=== PATIENT | female | born 1945 | race African-American/Black ===

== ENCOUNTER → 2017-03-23 | Outpatient (CLI) | payer OTHER ==
[~2017-03-23] VITALS: Ht 160 cm; Wt 102.1 kg
[2017-03-23] VITALS (8 sets, daily range): BP systolic 119–164; BP diastolic 62–88
[~2017-03-23] MED LIST: AMLO5TAB2 PO; ASPI-482 PO; CARV12.52 PO; CHOL200074 PO; CONTRAST GIVEN MC PRN; DILT240C66 PO; DILT240C77 PO; HEPARIN for IV BOLUS 10,000 UNIT/10 ML VIAL. IART ONE; HEPARIN for IV BOLUS 10,000 UNIT/10 ML VIAL. ONE; HYDR25TA9 PO; IOHEXOL 300 MG/ML 100ML VIAL. IART ONE; IOHEXOL 300 MG/ML 100ML VIAL. ONE; LIDOCAINE 2% 20 ML VIAL. IJ ONE; LIDOCAINE 2% 20 ML VIAL. ONE; METF1000 PO; METF500T PO; METF500T4 PO; MIDAZOLAM HCL/PF 2 MG/2 ML VIAL. IV ONE; MIDAZOLAM HCL/PF 2 MG/2 ML VIAL. ONE; NITROGLYCERIN 200 MCG/2 ML SYRINGE FOR CATH/VASC LAB. IART ONE; NITROGLYCERIN 200 MCG/2 ML SYRINGE FOR CATH/VASC LAB. ONE; OMEP40CA5 PO; OXYB5TAB7 PO; POTA10TA5 PO; POTA20TA12 PO; POTA20TA4 PO; PRAV80TA2 PO; SPIR25TA PO; VERAPAMIL 5 MG/2 ML VIAL. IART ONE; VERAPAMIL 5 MG/2 ML VIAL. ONE; fentaNYL PF VIAL 100 MCG/2 ML VIAL IV ONE; fentaNYL PF VIAL 100 MCG/2 ML VIAL ONE
[2017-03-23 09:57] LABS: HEMATOCRIT 45.3 % (36.0-47.0); HEMOGLOBIN 14.7 g/dL (12.0-15.5); RED BLOOD COUNT 5.24 x10^6/uL (3.50-5.40); RED CELL DISTRIBUTION WIDTH 14.6 % (11.5-14.5); WHITE BLOOD COUNT 7.3 x10^3/uL (4.0-11.0)
[2017-03-23 09:59] LABS: CREATININE 1.1 mg/dL (0.6-1.0); GFR 59.4; POTASSIUM 3.4 mmol/L (3.5-5.1)
[2017-03-23 10:11] LABS: PROTHROMBIN TIME PATIENT 12.7 SEC (11.7-14.0)
--- NOTE | 2017-03-23 11:05 | PDOC ---
MODERATE SEDATION ASSESSMENT RISKS/ALTERNATIVES Risks/Alternatives Risks and alternatives of this type of sedation and procedure discussed with: RISK/ALTERNATIVES: Patient H & P ON CHART H & P H & P on chart and reviewed for co-morbid conditions and appropriate labs. H&P ON CHART: Yes STATUS PREG STATUS ASSESSED: N/A MEDS/ALLERGIES REVIEWED Meds/Allergies Reviewed Medications and Allergies including time and route of recently administered narcotics and sedatives. MEDS/ALLERGIES REVIEWED: Yes ASA RATING ASA RATING: II AIRWAY ASSESSMENT Airway Assessment Airway patency, oral function limitations, presence of caps, crowns, dentures, partials, and ability to extend neck assessed. AIRWAY ASSESSMENT: Yes MALLAMPATI SCORE MALLAMPATI SCORE: II PRE-SEDATION ASSESSMENT PRE-SEDATION ASSESSMENT: Yes SHARMILA JUSTICE MD Mar 23, 2017 11:05
--- NOTE | 2017-03-23 11:12 | CARD ---
APPROVED REPORT Procedure(s) performed: Left heart catheterization, selective coronary angiography and left ventricul ography via right transradial approach Moderate sedation 32 minutes HISTORY : Chest pain and positive stress test. PROCEDURE NARRATIVE After explaining the risks, benefits and alternative options, informed consent was obtained from sneha ent. Patient was brought to the cardiac Product Management Intern and right wrist was prepped and draped in the usual fashion after confirming a positive modified Humble's test. Arterial access was obtained in the [facility] t radial artery and a 6 Salvadorean sheath was inserted. 6 [place]ad[place] JL 3.5 and 6F FR4 catheters were used t o perform selective angiography of the left and right coronary arteries after initial attempts to eng age these vessels with 6F Abhi catheter were unsuccessful. 6 [place]orean pigtail catheter was used to p erform left ventriculography. Patient tolerated the procedure well. Hemostasis was achieved using T R band. There were no immediate complications. The following findings were noted. FINDINGS 1. Hemodynamics: Left ventricular end-diastolic pressure of 14 mmHg. No pullback gradient across th e aortic valve. 2. Left ventriculography: Hyperdynamic left ventricle systolic function with ejection fraction shannon mated at 80%. No significant mitral regurgitation seen. 3. Coronary angiography: a. The left main coronary artery arose from the left sinus of Valsalva, gave rise to the left anteri or descending and left circumflex arteries and did not show any significant stenosis. b. The left anterior descending artery did not show any significant stenosis. c. The left circumflex artery did not show any significant stenosis. d. The right coronary artery was a large and dominant vessel arising from the right sinus of Valsalv a that showed 40% distal segment stenosis Conclusion 1. Non-obstructive coronary artery disease 2. Hyperdynamic left ventricle systolic function with ejection fraction estimated at 80% Recommendations Cardiac Risk Reduction Program Medical Therapy
== END ==
LOC: CCL 09:13
PROVIDERS: ATTEND Internal Medicine Cardiovascular Disease
DX: I25.10 Atherosclerotic heart disease of native coronary artery without angina pectoris (principal); I10 Essential (primary) hypertension; K21.9 Gastro-esophageal reflux disease without esophagitis; Z90.710 Acquired absence of both cervix and uterus; E11.9 Type 2 diabetes mellitus without complications
CPT/HCPCS: 36415; 80048; 85027; 85610; 93458; 99152; 99153; C1769; C1892; J1644; J2250; J3010; J3490; Q9967; J2001

== ENCOUNTER 2017-05-08 07:28 | Outpatient (CLI) | payer OTHER ==
[2017-05-08 08:08] LABS: HEMATOCRIT 44.6 % (36.0-47.0); HEMOGLOBIN 14.6 g/dL (12.0-15.5); MEAN CORPUSCULAR HEMOGLOBIN 28 pg (25-35); MEAN CORPUSCULAR HGB CONC 33 g/dL (31-37); MEAN CORPUSCULAR VOLUME 86 fL (79-100); PLATELET COUNT 209 x10^3/uL (140-400); RED BLOOD COUNT 5.18 x10^6/uL (3.50-5.40); RED CELL DISTRIBUTION WIDTH 15.1 % (11.5-14.5); WHITE BLOOD COUNT 6.8 x10^3/uL (4.0-11.0)
[2017-05-08 08:17] LABS: INR 1.2 (0.8-1.1); PARTIAL THROMBOPLASTIN TIME 26 SEC (24-38); PROTHROMBIN TIME PATIENT 14.4 SEC (11.7-14.0)
[2017-05-08 08:29] LABS: ANION GAP 11 (6-14); BLOOD UREA NITROGEN 17 mg/dL (7-20); CALCIUM 9.4 mg/dL (8.5-10.1); CARBON DIOXIDE 29 mmol/L (21-32); CHLORIDE 99 mmol/L (98-107); CREATININE 1.2 mg/dL (0.6-1.0); GFR 53.7; GLUCOSE 140 mg/dL (70-99); POTASSIUM 3.7 mmol/L (3.5-5.1); SODIUM 139 mmol/L (136-145)
[2017-05-08] MEDS ORDERED: LIDOCAINE 2% 20 ML VIAL. ×2 (08:50→09:22)
[2017-05-08] MEDS ORDERED: IODIXANOL 320 MG/ML 100 ML VIAL. (08:50)
[2017-05-08] MEDS ORDERED: fentaNYL PF VIAL 100 MCG/2 ML VIAL (08:55)
[2017-05-08] MEDS ORDERED: MIDAZOLAM HCL/PF 2 MG/2 ML VIAL. (08:55)
[2017-05-08] MEDS: MIDAZOLAM HCL/PF 2 MG/2 ML VIAL. IV (09:35)
[2017-05-08] MEDS: LIDOCAINE 2% 20 ML VIAL. IJ (09:35)
[2017-05-08] MEDS: fentaNYL PF VIAL 100 MCG/2 ML VIAL IV (09:35)
[2017-05-08] MEDS ORDERED: IV 1/2 NORMAL SALINE 1,000 ML IV (09:50)
[2017-05-08] MEDS ORDERED: NITROGLYCERIN SUBLINGUAL 0.4 MG BOTTLE OF 25. SL (10:00)
== END 2017-05-08 14:00 | disposition home or self-care (01) ==
LOC: CCL 07:28
DX: I70.212 Atherosclerosis of native arteries of extremities with intermittent claudication, left leg (principal); E78.00 Pure hypercholesterolemia, unspecified; E11.42 Type 2 diabetes mellitus with diabetic polyneuropathy; M19.91 Primary osteoarthritis, unspecified site; Z90.710 Acquired absence of both cervix and uterus; Z86.39 Personal history of other endocrine, nutritional and metabolic disease; Z87.39 Personal history of other diseases of the musculoskeletal system and connective tissue; Z88.2 Allergy status to sulfonamides; Z88.8 Allergy status to other drugs, medicaments and biological substances; Z79.01 Long term (current) use of anticoagulants
CPT/HCPCS: 36200; 36415; 75630; 80048; 85027; 85610; 85730; 93926; 99152; 99153; C1769; C1771; C1892; G0269; J1644; J2250; J3010

== ENCOUNTER → 2017-05-24 | Outpatient (CLI) | payer OTHER | END | disposition home or self-care (01) | LOC: US 15:35 | DX: I73.9 Peripheral vascular disease, unspecified (principal); I70.8 Atherosclerosis of other arteries; M79.605 Pain in left leg | CPT/HCPCS: 93923 ==

== ENCOUNTER 2017-06-08 18:26 | Observation (INO) | payer OTHER ==
[2017-06-08 20:13] LABS: ADD MAN DIFF? NO
[2017-06-08 20:23] LABS: BASO # 0.1 x10^3/uL (0.0-0.2); BASO % 1 % (0-3); EOS # 0.1 x10^3/uL (0.0-0.7); EOS % 1 % (0-3); HEMATOCRIT 43.9 % (36.0-47.0); HEMOGLOBIN 14.7 g/dL (12.0-15.5); LYMPH # 2.2 x10^3/uL (1.0-4.8); LYMPH % 30 % (24-48); MEAN CORPUSCULAR HEMOGLOBIN 29 pg (25-35); MEAN CORPUSCULAR HGB CONC 34 g/dL (31-37); MEAN CORPUSCULAR VOLUME 86 fL (79-100); MONO # 0.8 x10^3/uL (0.0-1.1); MONO % 11 % (0-9); NEUT # 4.2 x10^3uL (1.8-7.7); NEUT % 57 % (31-73); PLATELET COUNT 247 x10^3/uL (140-400); RED BLOOD COUNT 5.12 x10^6/uL (3.50-5.40); RED CELL DISTRIBUTION WIDTH 14.4 % (11.5-14.5); WHITE BLOOD COUNT 7.4 x10^3/uL (4.0-11.0)
[2017-06-08] MEDS: IV NORMAL SALINE 1000ML BAG 1,000 ML IV ×2 (20:25→21:43)
[2017-06-08 20:29] LABS: ANION GAP 9 (6-14); BLOOD UREA NITROGEN 17 mg/dL (7-20); BUN/CREATININE RATIO 15 (6-20); CALCIUM 9.8 mg/dL (8.5-10.1); CARBON DIOXIDE 31 mmol/L (21-32); CHLORIDE 96 mmol/L (98-107); CREATININE 1.1 mg/dL (0.6-1.0); GFR 59.4; GLUCOSE 121 mg/dL (70-99); POTASSIUM 4.1 mmol/L (3.5-5.1); SODIUM 136 mmol/L (136-145)
[2017-06-08 20:35] LABS: ALBUMIN 4.1 g/dL (3.4-5.0); ALBUMIN/GLOBULIN RATIO 0.9 (1.0-1.7); ALK PHOS 126 U/L (46-116); ALT (SGPT) 21 U/L (14-59); AST (SGOT) 17 U/L (15-37); MAGNESIUM 2.1 mg/dL (1.8-2.4); TOTAL BILIRUBIN 0.6 mg/dL (0.2-1.0); TOTAL PROTEIN 8.8 g/dL (6.4-8.2)
[2017-06-08 20:36] LABS: INR 1.1 (0.8-1.1); PARTIAL THROMBOPLASTIN TIME 25 SEC (24-38); PROTHROMBIN TIME PATIENT 13.5 SEC (11.7-14.0)
[2017-06-08 20:39] LABS: TROPONINI < 0.017 ng/mL (0.000-0.055)
[2017-06-08 20:40] LABS: NT-PRO BNP 12 pg/mL (0-124)
[2017-06-08 20:43] LABS: THYROID STIM HORMONE (TSH) 1.815 uIU/mL (0.358-3.74)
[2017-06-08 20:44] LABS: BILIRUBIN,URINE NEGATIVE (NEG); CLARITY,URINE CLEAR; COLOR,URINE YELLOW; GLUCOSE,URINE NEGATIVE (NEG); NITRITE,URINE NEGATIVE (NEG); PROTEIN,URINE NEGATIVE (NEG-TRACE)
[2017-06-08 20:51] LABS: BACTERIA,URINE FEW /HPF (0-FEW); HYALINE CASTS, URINE FEW /HPF; RBC,URINE OCC /HPF (0-2); SQUAMOUS EPITHELIAL CELL,UR MOD /LPF
[2017-06-08] MEDS ORDERED: ONDANSETRON PF 4 MG/2 ML VIAL. IV (21:00)
[2017-06-08] MEDS: MECLIZINE HCL 12.5 MG TABLET. PO (21:42)
[2017-06-09 03:31] LABS: ADD MAN DIFF? NO
[2017-06-09 03:49] LABS: ANION GAP 5 (6-14); BLOOD UREA NITROGEN 15 mg/dL (7-20); CALCIUM 8.9 mg/dL (8.5-10.1); CARBON DIOXIDE 31 mmol/L (21-32); CHLORIDE 102 mmol/L (98-107); GFR 66.3; GLUCOSE 119 mg/dL (70-99); POTASSIUM 3.7 mmol/L (3.5-5.1); SODIUM 138 mmol/L (136-145)
[2017-06-09 04:00] LABS: TROPONINI < 0.017 ng/mL (0.000-0.055)
[2017-06-09 04:04] LABS: BASO % 1 % (0-3); EOS # 0.1 x10^3/uL (0.0-0.7); EOS % 2 % (0-3); HEMATOCRIT 40.3 % (36.0-47.0); HEMOGLOBIN 13.3 g/dL (12.0-15.5); LYMPH # 2.3 x10^3/uL (1.0-4.8); LYMPH % 33 % (24-48); MEAN CORPUSCULAR HEMOGLOBIN 28 pg (25-35); MEAN CORPUSCULAR HGB CONC 33 g/dL (31-37); MEAN CORPUSCULAR VOLUME 86 fL (79-100); MONO # 0.7 x10^3/uL (0.0-1.1); MONO % 10 % (0-9); NEUT # 3.7 x10^3uL (1.8-7.7); NEUT % 54 % (31-73); PLATELET COUNT 216 x10^3/uL (140-400); RED BLOOD COUNT 4.69 x10^6/uL (3.50-5.40); RED CELL DISTRIBUTION WIDTH 14.7 % (11.5-14.5); WHITE BLOOD COUNT 6.9 x10^3/uL (4.0-11.0)
[2017-06-09 07:49] LABS: POC GLUCOSE 75 mg/dL (70-99)
[2017-06-09 09:35] LABS: TROPONINI < 0.017 ng/mL (0.000-0.055)
[2017-06-09] MEDS ORDERED: MAGNESIUM HYDROXIDE 2,400 MG/30 ML ORAL.SUSP. PO (11:45)
[2017-06-09] MEDS: IV NORMAL SALINE 1000ML BAG 1,000 ML IV (14:48)
[2017-06-09] MEDS: ASPIRIN CHEWABLE 81 MG TABLET. PO (14:53)
[2017-06-09] MEDS: PANTOPRAZOLE 40 MG TABLET.DR. PO (14:53)
[2017-06-09] MEDS: POTASSIUM CHLORIDE 20 MEQ TABLET.ER. PO (14:53)
[2017-06-09] MEDS: MECLIZINE HCL 12.5 MG TABLET. PO ×2 (14:55→20:53)
[2017-06-09] MEDS: ACETAMINOPHEN 325 MG TABLET. PO (14:55)
[2017-06-09 16:16] LABS: AMPHETAMINE/METHAMPHETAMINE NEG (NEG); BARBITURATES NEG (NEG); BENZODIAZEPINES NEG (NEG); CANNABINOIDS NEG (NEG); COCAINE NEG (NEG); ETHANOL, URINE NEG (NEG); METHADONE NEG (NEG); OPIATES NEG (NEG); PHENCYCLIDINE NEG (NEG)
[2017-06-09 16:35] LABS: CREATINE KINASE 49 U/L (26-192)
[2017-06-09 17:01] LABS: POC GLUCOSE 96 mg/dL (70-99)
[2017-06-09] MEDS: metFORMIN 500 MG TABLET PO (18:11)
[2017-06-09 20:25] LABS: POC GLUCOSE 108 mg/dL (70-99)
[2017-06-10 05:11] LABS: ADD MAN DIFF? NO
[2017-06-10 05:30] LABS: BASO # 0.1 x10^3/uL (0.0-0.2); BASO % 1 % (0-3); EOS # 0.2 x10^3/uL (0.0-0.7); EOS % 4 % (0-3); HEMATOCRIT 40.4 % (36.0-47.0); HEMOGLOBIN 13.3 g/dL (12.0-15.5); LYMPH % 36 % (24-48); MEAN CORPUSCULAR HEMOGLOBIN 28 pg (25-35); MEAN CORPUSCULAR HGB CONC 33 g/dL (31-37); MEAN CORPUSCULAR VOLUME 86 fL (79-100); MONO # 0.6 x10^3/uL (0.0-1.1); MONO % 10 % (0-9); NEUT # 2.7 x10^3uL (1.8-7.7); NEUT % 50 % (31-73); PLATELET COUNT 191 x10^3/uL (140-400); RED BLOOD COUNT 4.71 x10^6/uL (3.50-5.40); RED CELL DISTRIBUTION WIDTH 14.5 % (11.5-14.5); WHITE BLOOD COUNT 5.5 x10^3/uL (4.0-11.0)
[2017-06-10 05:42] LABS: CHOLESTEROL 199 mg/dL (0-200); HDLC 54 mg/dL (40-60); LDLC 126 mg/dL (0-100); NON-HDL CHOLESTEROL 145 mg/dL (0-129); TRIGLYCERIDES 95 mg/dL (0-150); VLDLC 19 mg/dL (0-40)
[2017-06-10 05:43] LABS: ALBUMIN 3.3 g/dL (3.4-5.0); ALBUMIN/GLOBULIN RATIO 0.9 (1.0-1.7); ALK PHOS 102 U/L (46-116); ALT (SGPT) 15 U/L (14-59); ANION GAP 9 (6-14); AST (SGOT) 14 U/L (15-37); BLOOD UREA NITROGEN 14 mg/dL (7-20); BUN/CREATININE RATIO 16 (6-20); CALCIUM 8.7 mg/dL (8.5-10.1); CARBON DIOXIDE 28 mmol/L (21-32); CHLORIDE 101 mmol/L (98-107); CHOLESTEROL/HDL RATIO 3.7; CREATININE 0.9 mg/dL (0.6-1.0); GFR 74.9; GLUCOSE 128 mg/dL (70-99); MAGNESIUM 1.9 mg/dL (1.8-2.4); POTASSIUM 3.9 mmol/L (3.5-5.1); SODIUM 138 mmol/L (136-145); TOTAL BILIRUBIN 0.5 mg/dL (0.2-1.0); TOTAL PROTEIN 6.9 g/dL (6.4-8.2)
[2017-06-10 08:11] LABS: POC GLUCOSE 83 mg/dL (70-99)
[2017-06-10] MEDS: CHOLECALCIFEROL (VITAMIN D3) 1,000 UNIT TABLET PO (09:47)
[2017-06-10] MEDS: MECLIZINE HCL 12.5 MG TABLET. PO (09:48)
[2017-06-10] MEDS: ASPIRIN CHEWABLE 81 MG TABLET. PO (09:48)
[2017-06-10] MEDS: PANTOPRAZOLE 40 MG TABLET.DR. PO (09:48)
[2017-06-10 12:07] LABS: POC GLUCOSE 86 mg/dL (70-99)
[2017-06-11 09:39] LABS: VITAMIN-B12 304 pg/mL (247-911)
== END 2017-06-10 14:15 | disposition home or self-care (01) ==
LOC: ER 18:26 → 6 SOUTH 20:53
DX: R42 Dizziness and giddiness (principal); R26.9 Unspecified abnormalities of gait and mobility; I10 Essential (primary) hypertension; E78.5 Hyperlipidemia, unspecified; I48.0 Paroxysmal atrial fibrillation; G47.33 Obstructive sleep apnea (adult) (pediatric); M19.90 Unspecified osteoarthritis, unspecified site; F17.210 Nicotine dependence, cigarettes, uncomplicated; E11.51 Type 2 diabetes mellitus with diabetic peripheral angiopathy without gangrene
CPT/HCPCS: 36415; 70551; 71045; 80048; 80053; 80061; 80307; 81001; 82306; 82550; 82607; 82962; 83735; 83880; 84443; 84484; 85025; 85610; 85730; 87086; 93005; 93880; 96360; 96361; 97161-GP; 97530-GP; 99285; G0378; G0379; G8978-CJ-GP; G8979-CI-GP; J7030; J8597

== ENCOUNTER 2017-06-12 06:31 | Outpatient (CLI) | payer OTHER ==
[2017-06-12 07:01] LABS: HEMATOCRIT 43.9 % (36.0-47.0); HEMOGLOBIN 14.4 g/dL (12.0-15.5); MEAN CORPUSCULAR HEMOGLOBIN 28 pg (25-35); MEAN CORPUSCULAR HGB CONC 33 g/dL (31-37); MEAN CORPUSCULAR VOLUME 86 fL (79-100); PLATELET COUNT 239 x10^3/uL (140-400); RED BLOOD COUNT 5.12 x10^6/uL (3.50-5.40); RED CELL DISTRIBUTION WIDTH 14.6 % (11.5-14.5)
[2017-06-12 07:11] LABS: PARTIAL THROMBOPLASTIN TIME 25 SEC (24-38); PROTHROMBIN TIME PATIENT 12.7 SEC (11.7-14.0)
[2017-06-12] MEDS ORDERED: IODIXANOL 320 MG/ML 100 ML VIAL. ×2 (07:16)
[2017-06-12] MEDS ORDERED: LIDOCAINE 2% 20 ML VIAL. ×2 (07:16)
[2017-06-12 07:19] LABS: ANION GAP 9 (6-14); BLOOD UREA NITROGEN 15 mg/dL (7-20); CALCIUM 9.3 mg/dL (8.5-10.1); CARBON DIOXIDE 30 mmol/L (21-32); CHLORIDE 99 mmol/L (98-107); GFR 66.3; GLUCOSE 135 mg/dL (70-99); POTASSIUM 3.4 mmol/L (3.5-5.1); SODIUM 138 mmol/L (136-145)
[2017-06-12] MEDS ORDERED: MIDAZOLAM HCL/PF 2 MG/2 ML VIAL. ×2 (07:59)
[2017-06-12] MEDS ORDERED: fentaNYL PF VIAL 100 MCG/2 ML VIAL ×2 (07:59)
[2017-06-12] MEDS ORDERED: CONTRAST GIVEN MC ×2 (08:15)
[2017-06-12] MEDS: LIDOCAINE 2% 20 ML VIAL. IJ ×2 (08:30)
[2017-06-12] MEDS: MIDAZOLAM HCL/PF 2 MG/2 ML VIAL. IV ×2 (08:30)
[2017-06-12] MEDS ORDERED: HEPARIN for IV BOLUS 10,000 UNIT/10 ML VIAL. ×2 (08:39)
[2017-06-12] MEDS: HEPARIN for IV BOLUS 10,000 UNIT/10 ML VIAL. IV ×2 (08:42)
[2017-06-12] MEDS: fentaNYL PF VIAL 100 MCG/2 ML VIAL IV ×2 (08:54)
[2017-06-12] MEDS: IODIXANOL 320 MG/ML 100 ML VIAL. IART ×2 (09:14)
[2017-06-12] MEDS ORDERED: ACETAMINOPHEN 325 MG TABLET. PO ×2 (09:30)
[2017-06-12] MEDS: IV 1/2 NORMAL SALINE 1,000 ML IV ×2 (10:00)
[2017-06-12] MEDS ORDERED: MECLIZINE HCL 12.5 MG TABLET. PO ×2 (14:00)
[2017-06-13] MEDS ORDERED: PANTOPRAZOLE 40 MG TABLET.DR. PO ×2 (07:30)
[2017-06-13] MEDS ORDERED: CHOLECALCIFEROL (VITAMIN D3) 1,000 UNIT TABLET PO ×2 (09:00)
[2017-06-13] MEDS ORDERED: ATORVASTATIN CALCIUM 20 MG TABLET PO ×2 (09:00)
[2017-06-13] MEDS ORDERED: ASPIRIN ENTERIC COATED 81 MG TABLET.DR. PO ×2 (09:00)
[2017-06-14] MEDS ORDERED: metFORMIN 500 MG TABLET PO ×2 (17:00)
== END 2017-06-12 13:00 | disposition home or self-care (01) ==
LOC: CCL 06:31
DX: I70.212 Atherosclerosis of native arteries of extremities with intermittent claudication, left leg (principal); Z79.01 Long term (current) use of anticoagulants; E78.00 Pure hypercholesterolemia, unspecified; I48.91 Unspecified atrial fibrillation; K21.9 Gastro-esophageal reflux disease without esophagitis; E11.9 Type 2 diabetes mellitus without complications; Z86.39 Personal history of other endocrine, nutritional and metabolic disease; Z87.39 Personal history of other diseases of the musculoskeletal system and connective tissue; Z88.2 Allergy status to sulfonamides; Z88.8 Allergy status to other drugs, medicaments and biological substances; Z90.710 Acquired absence of both cervix and uterus
CPT/HCPCS: 36415; 37224; 75630; 80048; 85027; 85610; 85730; 99152; 99153; C1725; C1769; C1771; C1892; G0269; J1644; J2250; J3010